=== PATIENT | female | born 1945 | race Caucasian/White ===

== ENCOUNTER 2020-08-13 08:55 | Outpatient (RCR) | payer MEDICARE, OTHER, SELFPAY ==
--- NOTE | 2020-08-13 09:38 | PTOPEVAL ---
Thank you for referring Denice Otoole to [facility].? The patient is scheduled to be seen for therapy? __3__x/week for 12 visits. Please review, sign, date and return this plan of care RILEY. I agree with and certify that the following plan of care is medically necessary. Referring Physician Date Admitting Provider: Attending Provider: Ngoc Salmeron, ENTREPRENEURSHIP PROGRAM DIRECTOR Referring Provider: *PT Outpatient Evaluation Start: 08/13/20 08:53 Freq: Status: Active Protocol: Document 08/13/20 09:05 GAUTAM (Rec: 08/13/20 09:37 [email or web address] [id number]) Therapy Assessment Status Assessment Status Assessment Status Evaluation Evaluation Information Problem Diagnosis left patellofemoral syndrome, left knee asiya Onset 06/12/21 Subjective Information Pt. reports that she fell in Query Text:As Reported By Patient/ her garage about 2 years ago. Family She reports that she has had on/off pain since. She reports that pain got worse about 2 months ago and has been more consistent. She reports that most pain is on the outside of the left knee. She reports pain is increased with stairs, squatting, kneeling and walking activities. She did recieve a knee brace which has helped to slightly reduce her pain. she reports that she is currently completing all ADL's but activities cause a increase in her pain. She reports that her goal is to decrease her knee pain. Diagnostic Tests X-Rays For This Problem Yes Prior Level of Function Activity Level (Last 3 Months) Occupation retired Hand Dominance Right Activity of Daily Living Ability Independent Indoor/Home Mobility Independent Community Mobility Independent Stairs Ability Independent Functional Cognition (Planning, Shopping Independent , Taking Medications) Cooking Yes Cleaning Yes Laundry Yes Shopping Yes Driving Yes Pain Assessment Timing of Pain Assessment Timing of Pain Assessment Pre-Treatment Pain Scale Pain Scale Used Numeric (1 - 10) Self Report Pain Assessment L
== END 2020-09-12 11:16 | disposition home or self-care (01) ==
LOC: CHSPT 08:55
PROVIDERS: Visit Provider Nurse Practitioner Family
DX: M22.2X2 Patellofemoral disorders, left knee (principal); M17.12 Unilateral primary osteoarthritis, left knee
CPT/HCPCS: 97014; 97110; 97112; 97161; G0283

== ENCOUNTER → 2021-11-18 07:58 | Outpatient (CLI) | payer MEDICARE, OTHER, SELFPAY ==
--- NOTE | ~2021-11-18 | MR_ITS ---
EXAMINATION: MR lumbar spine wo con DATE: 11/18/2021 08:35 INDICATION: Lumbar spinal stenosis with neurogenic claudication. Low back pain and difficulty walking . TECHNIQUE: Magnetic resonance imaging (MRI) of the lumbar spine was performed without intravenous con trast. Sequences included sagittal T2-weighted FSE, sagittal T2-weighted FS FSE, sagittal T1-weighted FSE, and axial T2-weighted FSE. COMPARISON: None FINDINGS: 15 degree thoracolumbar dextroscoliosis measured between T12 and L5. Sagittal alignment is normal. Ve rtebral body heights are normal. Normal marrow signal. Moderate disc height loss at T10-T11. Mild di sc height loss at L3-L4 and mild left-sided disc height loss at L1-L2 and L2-L3. The conus medullaris terminates at 2. There is normal signal in the caudal spinal cord. Prominent bilateral extrarenal pe lvises sees without clau hydronephrosis. Paravertebral soft tissues are otherwise unremarkable. The following disc levels are specifically discussed: T12-L1: The disc does not extend beyond the endplate margin. There is mild left and moderate right fa cet joint osteoarthritis. There is no neural foraminal stenosis. There is no central canal stenosis. L1-L2: Disc is mildly bulging. There is mild bilateral facet joint osteoarthritis. There is no neural foraminal stenosis. There is no central canal stenosis. L2-L3: Disc is minimally bulging. There is mild bilateral facet joint osteoarthritis. There is mild b ilateral neural foraminal stenosis. There is no central canal stenosis. L3-L4: Disc is minimally bulging. There is mild bilateral facet joint osteoarthritis. There is mild b ilateral neural foraminal stenosis. There is no central canal stenosis. L4-L5: Disc is mildly bulging. There is mild to moderate bilateral facet joint osteoarthritis. There is mild bilateral neural foraminal stenosis. There is no central canal stenosis. L5-S1: The disc does not extend beyond the endplate margin. There is mild to moderate bilateral facet joint osteoarthritis. There is no neural foraminal stenosis. There is no central canal stenosis. IMPRESSION: 1. 15 degrees thoracolumbar dextroscoliosis with mild spondylosis. Reviewed, dictated and finalized at location A.
== END ==
PROVIDERS: PCP Family Medicine; Visit Provider Family Medicine
DX: M48.062 Spinal stenosis, lumbar region with neurogenic claudication (principal); I73.9 Peripheral vascular disease, unspecified; M47.895 Other spondylosis, thoracolumbar region
CPT/HCPCS: 72148

== ENCOUNTER 2023-11-18 14:17 | Outpatient (RCR) | payer MEDICARE, OTHER, SELFPAY ==
--- NOTE | 2023-11-19 14:00 | OPREHPOC ---
Outpatient Therapy Plan of Care This is a Multidisciplinary Plan of Care that may contain components documented by all disciplines (PT, OT, and ST.) PT Problem 1 PT Problem #1 Knowledge Deficit PT Goal 1 Goal 1. independent and compliant with HEP Target Visit 3 PT Problem 2 PT Problem #2 Impaired Functional Mobil PT Goal 1 Goal 1. patient to report no symptoms of lightheadedness in the past week 2. patient to display safe transition from supine to sitting and standing including ankle pump and paused movements to decrease drop in blood pressure 3. DHI to display 20% or less functional deficits 4. no falls since beginning therapy Target Visit 6
--- NOTE | 2023-11-19 14:00 | PTOPEVAL1 ---
Assessment and note entered by JT File, PT Evaluation Information Assessment Status Evaluation Diagnosis BPPV Onset 11/10/23 Subjective Information patient reports she is having dizziness. she reports she has symptoms that progress as the day goes on. she was put on meclizine about 1 week ago . she reports she has increased symptoms with looking up and down, especially when reaching down to pecan picker and item from the floor. she reports she does also feel lightheaded at times. she reports the meds last about 3-4 hours at a time. she reports she has had symptoms for about 10 days . she reports she also has symptoms with turning quickly. she reports her symptoms will last for more than a minute. she describes her dizziness as needing to hold onto objects. she reports the room does not spin. she reports she just feels very light headed. she reports she does not take meds for blood pressure, but reports she has had low blood pressure all her life. she reports she does not drink much water. she reports she reports she has roughly 1-2 meals a day (one major meal and one smaller breakfast or lunch/snack). Reported Pain Level Pain Score 0: Self Report Assessment PT Clinical Summary mrs. arellano is a pleasant 77 yo woman who presents to skilled PT services for evaluation and treatment of dizziness and lightheadedness. her order is for BPPV, but upon testing and evaluation today, patient likely suffers from a blood pressure related issue for her symptoms. she is a frail older woman who has no nystagmus, no symptoms of the room spinning, and low blood pressure. she does not have an observable orthostasis episode today, but symptomatic changes with supine to sit and sit to stand. continued treatment is indicated to try and improve patients symptoms. treatments will mostly focus on generalized conditioning of both muscles and the CV system. she was also educated extensively in activities to try at home to keep her blood pressure in homeostasis with transfers. we will continue to evaluate for BPPV symptoms infrequently, and also additional balance deficits . Plan of Care Interventions Gait Training,Neuro Re-education,Patient/Caregiver Educati,Therapeutic Activities,Therapeutic Exercise
--- NOTE | 2023-12-02 07:10 | PCPTNOTE ---
Patient cancelled session this date. She reports she has another appointment.
--- NOTE | 2023-12-04 08:57 | PCPTNOTE ---
Patient called & cancelled scheduled appointment this date due to [N/A]
== END 2024-02-16 23:59 | disposition home or self-care (01) ==
LOC: CHSPT 14:17
PROVIDERS: PCP Family Medicine; Visit Provider Family Medicine
DX: H81.10 Benign paroxysmal vertigo, unspecified ear (principal)
CPT/HCPCS: 97110; 97161